=== PATIENT | male | born 1985 ===

== ENCOUNTER 2023-01-28 06:52 | Emergency (ER) | payer BC, OTHER ==
[2023-01-28] MEDS ORDERED: Sodium Chloride 0.9% 1,000 ML IV ONE (07:30)
[2023-01-28] MEDS ORDERED: Ketorolac 30 MG/ML SDV IVPUSH ONE (07:30)
[2023-01-28 08:05] LABS: ANION GAP 15.1 mEq/L (7-13)
[2023-01-28] MEDS ORDERED: cefOXitin 1 GM Vial IVPUSH ONE (10:01)
[2023-01-28] MEDS ORDERED: cefOXitin 1 GM Vial ONE (10:17)
== END 2023-01-28 10:30 ==
LOC: DL.ED 06:52
DX: K35.80 Unspecified acute appendicitis (principal); M10.9 Gout, unspecified; Z79.899 Other long term (current) drug therapy
CPT/HCPCS: 36415; 74176; 80053; 81001; 83690; 85025; 96361; 96374; 96375; 99284; 99285-25; J0694; J1885; J7030